=== PATIENT | male | born 1965 | race Caucasian/White ===

== ENCOUNTER 2020-05-09 08:25 | Outpatient (REF) | payer OTHER, SELFPAY | END 2020-05-09 08:26 | disposition home or self-care (01) | LOC: HO.WFDLDS 08:25 | PROVIDERS: Visit Provider Internal Medicine | DX: Z20.828 Contact with and (suspected) exposure to other viral communicable diseases (principal) | CPT/HCPCS: C9803; U0003 ==

== ENCOUNTER 2020-06-14 11:27 | Outpatient (REF) | payer OTHER, SELFPAY | END 2020-06-14 11:28 | disposition home or self-care (01) | LOC: HO.WFDLDS 11:27 | PROVIDERS: Visit Provider Internal Medicine | DX: Z20.828 Contact with and (suspected) exposure to other viral communicable diseases (principal) | CPT/HCPCS: C9803; U0003 ==

== ENCOUNTER 2020-09-26 08:04 | Outpatient (REF) | payer OTHER, SELFPAY | END 2020-09-26 08:05 | disposition home or self-care (01) | LOC: HO.WFDLDS 08:04 | PROVIDERS: PCP Internal Medicine; Visit Provider Internal Medicine | DX: Z20.822 Contact with and (suspected) exposure to COVID-19 (principal) | CPT/HCPCS: C9803; U0003; U0005 ==